=== PATIENT | female | born 1965 | race Caucasian/White ===

== ENCOUNTER → 2017-12-30 | Outpatient (CLI) | payer BC ==
[~2017-12-30] MED LIST: ASPIRIN E.C. 8181 MG PO; DESYREL 50MG50 MG PO; FERROUS SULFATE65 MG PO; LAMICTAL XR300 MG PO; LEVOXYL0.05 MG PO
== END ==
LOC: MC.RAD 13:15
DX: Z12.31 Encounter for screening mammogram for malignant neoplasm of breast (principal)

== ENCOUNTER 2018-11-14 09:28 | Day surgery (SDC) | payer BC ==
[2018-11-14] VITALS (7 sets, daily range): BP systolic 93–111; BP diastolic 67–82; PULSE 42–65
[~2018-11-14] VITALS: Ht 165.1 cm; Wt 66.5 kg
[~2018-11-14 09:28] MED LIST changes: -LEVOXYL0.05 MG PO; +LEVOXYL0.1 MG PO
[2018-11-14 10:09] LABS: HEMATOCRIT 42.8 % (37.0-47.0); HEMOGLOBIN 14.2 g/dl (12.5-16.0); MEAN CELL VOLUME 94 fl (80.0-100.0); MEAN CORPUSCULAR HEMOGLOBIN 31 pg (27.0-31.0); MEAN CORPUSCULAR HGB CONC 33 g/dl (33.0-37.0); MEAN PLATELET VOLUME 9.8 fl (7.4-10.4); PLATELET COUNT 280 K/mm3 (130-400); RED BLOOD COUNT 4.54 M/mm3 (4.10-5.30); REDCELL DISTRIBUTION WIDTH-CV 12.4 % (11.5-14.5)
[2018-11-14 10:13] LABS: PROTHROMBIN TIME 11.8 SECONDS (9.7-12.8)
[2018-11-14 10:18] LABS: BILIRUBIN,TOTAL 0.5 mg/dL (0.0-1.0); CALCIUM 9.2 mg/dL (8.4-10.2); CREATININE, serum 0.74 (0.52-1.25); POTASSIUM 4.3 mmol/L (3.4-5.0); TOTAL PROTEIN 7.1 gm/dL (6.4-8.2)
[2018-11-14] MEDS ORDERED: PREMPRO 0.45 MG1 TAB PO (10:36)
[2018-11-14] MEDS ORDERED: BIOTIN10000 MC1 PO (10:37)
[2018-11-14] MEDS ORDERED: MULTI VITAMINS1 TAB PO (10:37)
[2018-11-14] MEDS ORDERED: FOLIC ACID 40400 MCG PO (10:38)
[2018-11-14] MEDS ORDERED: CALCIUM CARBON650 M2 PO (10:38)
[2018-11-14] MEDS ORDERED: LUTEIN20 M1 PO (10:38)
[2018-11-14] MEDS ORDERED: FISH OIL 1000MG1 CAP PO (10:42)
[2018-11-14] MEDS ORDERED: MELATONIN5 M1 SL (10:43)
[2018-11-14] MEDS ORDERED: TOPROL XL 25MG25 MG PO (10:44)
[2018-11-14] MEDS ORDERED: XARELTO20 MG PO (10:44)
[2018-11-14 10:48] LABS: THYROID STIMULATING HORMONE 1.9 uIU/mL (0.465-4.680)
[2018-11-14] MEDS ORDERED: MULTAQ400 MG PO (11:06)
--- NOTE | 2018-11-14 12:55 | NUR ---
Discharge instructions given to pt.pt verbalizes understanding.INT removed,cathetr tip intact.Pt escorted out by this nurse.
== END 2018-11-14 13:58 | disposition home or self-care (01) ==
LOC: COL.CAR 09:28
PROVIDERS: Internal Medicine Cardiovascular Disease
DX: I48.0 Paroxysmal atrial fibrillation (principal); I08.3 Combined rheumatic disorders of mitral, aortic and tricuspid valves; Z79.82 Long term (current) use of aspirin; I49.3 Ventricular premature depolarization; Z79.01 Long term (current) use of anticoagulants
CPT/HCPCS: J7030

== ENCOUNTER → 2019-01-30 | Outpatient (CLI) | payer BC ==
[~2019-01-30] MED LIST changes: +BIOTIN10000 MC1 PO; +CALCIUM CARBON650 M2 PO; +FISH OIL 1000MG1 CAP PO; +FOLIC ACID 40400 MCG PO; +LUTEIN20 M1 PO; +MELATONIN5 M1 SL; +MULTAQ400 MG PO; +MULTI VITAMINS1 TAB PO; +PREMPRO 0.45 MG1 TAB PO; +TOPROL XL 25MG25 MG PO; +XARELTO20 MG PO
== END ==
LOC: MC.RAD 11:22
DX: Z12.31 Encounter for screening mammogram for malignant neoplasm of breast (principal)

== ENCOUNTER → 2020-02-02 | Outpatient (CLI) | payer BC | LOC: MC.RAD 14:39 | DX: Z12.31 Encounter for screening mammogram for malignant neoplasm of breast (principal) ==

== ENCOUNTER 2021-03-27 15:32 | Emergency (ER) | payer SELFPAY ==
[~2021-03-27] VITALS: Ht 165.1 cm; Wt 65.9 kg
[2021-03-27 15:44] VITALS: TEMP 97.8
[2021-03-27] MEDS ORDERED: NORCO 325 MG-51 TAB PO (18:21)
[2021-03-27 18:29] VITALS: BP 134/70; PULSE 76
== END 2021-03-27 18:29 | disposition home or self-care (01) ==
LOC: COL.ER 15:32
DX: S52.502A Unspecified fracture of the lower end of left radius, initial encounter for closed fracture (principal); I48.91 Unspecified atrial fibrillation; E03.9 Hypothyroidism, unspecified; Z79.890 Hormone replacement therapy; Z79.01 Long term (current) use of anticoagulants; Z79.82 Long term (current) use of aspirin; W18.30XA Fall on same level, unspecified, initial encounter; Y99.0 Civilian activity done for income or pay

== ENCOUNTER → 2021-04-13 | Outpatient (CLI) | payer BC ==
[~2021-04-13] MED LIST changes: +NORCO 325 MG-51 TAB PO
== END ==
LOC: MC.RAD 14:19
DX: Z12.31 Encounter for screening mammogram for malignant neoplasm of breast (principal)

== ENCOUNTER → 2022-04-06 | Outpatient (CLI) | payer BC | LOC: MC.RAD 06:58 | DX: N63.10 Unspecified lump in the right breast, unspecified quadrant (principal) ==

== ENCOUNTER → 2022-04-10 | Outpatient (CLI) | payer BC | LOC: MC.RAD 12:23 | DX: N63.10 Unspecified lump in the right breast, unspecified quadrant (principal) ==